=== PATIENT | male | born 1985 | race Caucasian/White ===

== ENCOUNTER 2016-05-15 09:28 | Inpatient (IN) | payer OTHER ==
[~2016-05-15] VITALS: Ht 165.1 cm; Wt 68.0 kg
[2016-05-15 09:33] VITALS: BP 133/55
--- NOTE | 2016-05-15 09:36 | NUR ---
Patient ambulated to bed 01.
--- NOTE | 2016-05-15 09:38 | NUR ---
31M BIB SELF C/O BL UPPER ABDOMINAL PAIN, SHARP, NON-RADIATING, 12/13 X 0400 TODAY; ABDOMEN FLAT, NON-TENDER, ACTIVE BOWEL SOUNDS X 4 QUADRANTS; PT DENIES N/V/D AT THIS TIME; A&OX4, BL LUNG SOUNDS CLEAR, RR EVEN/UNLABORED, SKIN IS WARM/DRY/INTACT AT THIS TIME; PT PLACED ON MONITOR, RESTING IN BED W/ HOB ELEVATED AND IN LOWEST POSITION; POSITIONED FOR COMFORT; ER MADE AWARE OF STATUS. WILL CONTINUE TO MONITOR. Addendum: 05/15/16 at 1209 by [facility] HEALED SCAR FROM SURGERY NOTED TO LEFT WRIST.
--- NOTE | 2016-05-15 09:45 | NUR ---
Dr. Sanchez evaluating patient at bedside.
[2016-05-15] MEDS ORDERED: NACL 0.9% 1,000 ML IV SCH (09:46)
[2016-05-15] MEDS ORDERED: ONDANSETRON 4 MG/2 ML VIAL IVP ONE (09:50)
[2016-05-15] MEDS ORDERED: FAMOTIDINE 20 MG/2 ML VIAL IVP ONE (09:50)
--- NOTE | 2016-05-15 09:53 | NUR ---
LAB AT BEDSIDE.
[2016-05-15] MEDS ORDERED: MORPHINE SULFATE 4 MG/ML SYR IVP ONE (10:15)
--- NOTE | 2016-05-15 10:32 | NUR ---
US at bedside.
--- NOTE | 2016-05-15 11:40 | NUR ---
Patient appears to be resting comfortably in bed. Vital Signs within normal limits. Respirations even and unlabored. WILL CONTINUE TO MONITOR.
[2016-05-15] MEDS ORDERED: HYDROmorphone 1 MG/ML AMP IVP ONE (11:45)
[2016-05-15] MEDS ORDERED: ONDANSETRON 4 MG/2 ML VIAL IVP PRN (12:00)
--- NOTE | 2016-05-15 12:26 | NUR ---
REPORT GIVEN TO ELIZABETH KHALIL.
--- NOTE | 2016-05-15 12:28 | NUR ---
Patient will be admitted to care of , CONSULT DR. MCKENZIE. Admited to [facility]. Will go to room 111B. Belongings list completed. Report to ELIZABETH KHALIL.
[2016-05-15 12:35] VITALS: BP 136/84
--- NOTE | 2016-05-15 12:35 | NUR ---
PT ADMITTED FROM ER, AWAKE ALERT AND ORIENTED X4. MAORI SPEAKING. BREATHING EVENLY AND UNLABORED. NO SIGNS OF ACUTE DISTRESS. SKIN IS WARM AND DRY. NO EPISODE OF ANY NAUSEA OR VOMITING. NO C/O BLADDER DISCOMFORT. PT VERBALIZED ABDOMINAL PAIN REDUCED TO 3/10 FROM ER. ORIENTED TO HOSPITAL ENVIRONMENT. ALL NEEDS ATTENDED, SAFETY PRECAUTIONS MAINTAINED. CALL LIGHT WITHIN REACH.
[2016-05-15] MEDS ORDERED: PNEUMOCOCCAL VACCINE 23 MCG/0.5 ML VIAL IMVAC SCH (13:45)
[2016-05-15] MEDS ORDERED: INFLUENZA VIRUS VACCINE QUAD 0.5 ML SYR IMVAC SCH (13:45)
[2016-05-15] MEDS: NACL 0.9% 1,000 ML IV SCH (14:03)
[2016-05-15 16:00] VITALS: BP 142/91
[2016-05-15] MEDS: MORPHINE SULFATE 2 MG/ML SYR IVP PRN (17:14)
--- NOTE | 2016-05-15 17:39 | NUR ---
SPOKE WITH DR. SALVADOR, MADE AWARE PT CURRENTLY HAS NO DIET ORDERS. MD VERBALIZED WILL PLACE ORDERS. CONTINUE TO MONITOR.
--- NOTE | 2016-05-15 18:15 | NUR ---
NEW ORDERS RECEIVED FROM DR. SALVADOR. NOTED AND CARRIED OUT.
[2016-05-15] MEDS: PIPER/TAZO 3.375GM/D5W PREMIX 50 ML IV SCH (18:27)
[2016-05-15] MEDS ORDERED: PIPERACILLIN/TAZOBACTAM 3.375 GM VIAL IV ONE (18:27)
--- NOTE | 2016-05-15 19:05 | NUR ---
PT ALERT AND RESPONSIVE, NO SIGNS OF ACUTE DISTRESS. ENDORSED TO ONCOMING PROJECTOR BOOTH OPERATOR NURSE FOR CONTINUITY OF CARE.
--- NOTE | 2016-05-15 19:30 | NUR ---
RECEIVED REPORT FROM DAY RN AT BEDSIDE, PATIENT IS SLEEPING, EASILY AROUSABLE, PATIENT IS ON ROOM AIR, NO SOB OR SIGN OF DISTRESS AT THIS TIME, NOTED IV TO LEFT AC PATENT AND INTACT WITH IVF INFUSING WELL, SKIN IS INTACT, PATIENT NPO AND AWARE, SAFETY MEASURES CHECKED, DISCUSSED PLAN OF CARE WITH PATIENT, PATIENT VERBALIZED UNDERSTANDING, CALL LIGHT WITHIN REACH. WILL CONTINUE TO MONITOR
[2016-05-15 20:00] VITALS: BP 141/81
--- NOTE | 2016-05-15 21:05 | NUR ---
PATIENT SLEEPING, NO SOB OR SIGN OF DISTRESS AT THIS TIME, CALL LIGHT WITHIN REACH. WILL CONTINUE TO MONITOR.
--- NOTE | 2016-05-15 23:05 | NUR ---
PATIENT SLEEPING, NO SOB OR SIGN OF DISTRESS AT THIS TIME, CALL LIGHT WITHIN REACH. WILL CONTINUE TO MONITOR.
[2016-05-16] MEDS ORDERED: PIPERACILLIN/TAZOBACTAM 3.375 GM VIAL IV ONE ×2 (00:07→05:04)
[2016-05-16] MEDS: PIPER/TAZO 3.375GM/D5W PREMIX 50 ML IV SCH ×5 (00:12→23:29)
[2016-05-16] MEDS: MORPHINE SULFATE 2 MG/ML SYR IVP PRN (00:23)
--- NOTE | 2016-05-16 00:34 | NUR ---
PATIENT C/O ABDOMINAL PAIN , ADMINISTERED MORPHINE PER MD ORDER, CALL LIGHT WITHIN REACH. WILL CONTINUE TO MONITOR.
--- NOTE | 2016-05-16 01:30 | NUR ---
PATIENT SLEEPING, NO SOB OR SIGN OF DISTRESS AT THIS TIME, CALL LIGHT WITHIN REACH. WILL CONTINUE TO MONITOR.
[2016-05-16] MEDS: NACL 0.9% 1,000 ML IV SCH ×2 (02:31→16:51)
[2016-05-16 04:00] VITALS: BP 134/83
--- NOTE | 2016-05-16 04:21 | NUR ---
PATIENT SLEEPING, NO SOB OR SIGN OF DISTRESS, CALL LIGHT WITHIN REACH. WILL CONTINUE TO MONITOR, VITAL SIGNS STABLE
--- NOTE | 2016-05-16 05:50 | NUR ---
DR MCKENZIE IN TO SEE PATIENT, PER MD, IF PATIENT'S WBC DOESNT INCREASE AND PATIENT CAN TOLERATE AND ADVANCED DIET, THE PATIENT CAN GO HOME AND FOLLOW UP AN OUTPATIENT FOR AN ELECTIVE SURGERY. WILL F/U WITH ORDERS. PER CHARGE NURSE MICHELLE MADDEN TO ORDER REGULAR DIET FOR PATIENT AND MONITOR HOW PATIENT TOLERATES.
--- NOTE | 2016-05-16 06:54 | NUR ---
PATIENT SLEEPING,NO SOB OR SIGN OF DISTRESS AT THIS TIME, CALL LIGHT WITHIN REACH. WILL CONTINUE TO MONITOR.
--- NOTE | 2016-05-16 07:15 | NUR ---
ENDORSED REPORT TO DAY SHIFT RN AT BEDSIDE, PATIENT IN STABLE CONDITION.
--- NOTE | 2016-05-16 07:17 | NUR ---
RECEIVED REPORT FROM ELIZABETH MUELLER. PT IS SLEEPING BUT EASILY AWAKEN, AAO X4, SKIN INTACT, IV ON LEFT AC PATENT AND INTACT INFUSING FLUID WELL. INITIAL ASSESSMENT DONE, NO S/S OF RESPIRATORY DISTRESS OR DISCOMFORT NOTED, DISCUSSED PLAN OF CARE, PT VERBALIZED UNDERSTANDING, SAFETY/FALL PRECAUTION ENFORCED, CALL LIGHT WITHIN REACH, WILL CONTINUE TO MONITOR.
[2016-05-16 07:55] VITALS: BP 122/73
--- NOTE | 2016-05-16 09:10 | NUR ---
NO DUE MEDS GIVEN, PT IS WATCHING TV AT THIS TIME, ALL NEEDS MET AT THIS TIME, CALL LIGHT WITHIN REACH, WILL CONTINUE TO MONITOR.
--- NOTE | 2016-05-16 09:14 | NUR ---
PATIENT HAS BEEN SCREENED AND CATEGORIZED MODERATE NUTRITION RISK. PATIENT WILL BE SEEN WITHIN 3-5 DAYS OF ADMISSION. 05/18/16-05/20/[address]
--- NOTE | 2016-05-16 10:29 | NUR ---
CALLED AND SPOKE TO DR. MCKENZIE NOTIFIED REGARDING PT'S WBC OF 10.6 AND TOLERATED REGULAR DIET, PER DR. MCKENZIE, PT IS CLEARED TO GO HOME.
--- NOTE | 2016-05-16 10:35 | NUR ---
NOTIFIED DR. BASILIO REGARDING PT IS CLEARED TO BE DISCHARGE BY DR. MCKENZIE.
--- NOTE | 2016-05-16 11:52 | NUR ---
DUE MEDS GIVEN, ALL NEEDS MET AT THIS TIME, CALL LIGHT WITHIN REACH, WILL CONTINUE TO MONITOR.
--- NOTE | 2016-05-16 13:23 | NUR ---
PT IS SLEEPING AT THIS TIME, NO S/S OF RESPIRATORY DISTRESS OR DISCOMFORT NOTED, CALL LIGHT WITHIN REACH, WILL CONTINUE TO MONITOR.
--- NOTE | 2016-05-16 15:50 | NUR ---
PT IS SLEEPING COMFORTABLY ON BED, NO S/S OF RESPIRATORY DISTRESS OR DISCOMFORT NOTED, CALL LIGHT WITHIN REACH, WILL CONTINUE TO MONITOR.
[2016-05-16 16:00] VITALS: BP 94/48
--- NOTE | 2016-05-16 17:46 | NUR ---
DINNER SERVED, PT HAS GOOD APPETITE, ALL NEEDS MET AT THIS TIME, CALL LIGHT WITHIN REACH, WILL CONTINUE TO MONITOR.
--- NOTE | 2016-05-16 19:08 | NUR ---
ENDORSED PT TO GUILLE Soria RN FOR CONTINUITY OF CARE. PT IS STABLE AT THIS TIME.
--- NOTE | 2016-05-16 19:20 | NUR ---
RECEIVED REPORT FROM DAY NURSEKRISTAL. PATIENT RESTING IN BED. NO RESPIRATORY DISTRESS, SOB, OR DISCOMFORT. INITIAL ASSESSMENT AND BODY CHECK DONE. PATIENT IS AOX4, SKIN IS INTACT, IV ACCESS TO LEFT AC 20G, PATENT. NO ABDOMINAL PAIN NOTED AT THIS TIME. DISCUSSED PLAN OF CARE, MEDICATION REGIMENT, AND PAIN MANAGEMENT WITH PATIENT. PATIENT VERBALIZED UNDERSTANDING. PLACED PATIENT ON SAFETY PRECAUTIONS. CALL LIGHT LEFT WITHIN REACH, WILL CONTINUE TO MONITOR.
--- NOTE | 2016-05-16 22:05 | NUR ---
PATIENT SITTING UP IN BED, RESTING. NO RESPIRATORY DISTRESS, SOB, OR DISCOMFORT. CALL LIGHT LEFT WITHIN REACH, WILL CONTINUE TO MONITOR.
[2016-05-17] VITALS: BP 103/61
--- NOTE | 2016-05-17 00:56 | NUR ---
PATIENT IN BED, SLEEPING. NO RESPIRATORY DISTRESS, SOB, OR DISCOMFORT. CALL LIGHT LEFT WITHIN REACH, WILL CONTINUE TO MONITOR.
--- NOTE | 2016-05-17 03:08 | NUR ---
PATIENT ASLEEP. NO RESPIRATORY DISTRESS, SOB, OR DISCOMFORT. CALL LIGHT LEFT WITHIN REACH, WILL CONTINUE TO MONITOR.
[2016-05-17] MEDS: PIPER/TAZO 3.375GM/D5W PREMIX 50 ML IV SCH ×3 (06:12→17:52)
--- NOTE | 2016-05-17 06:17 | NUR ---
PATIENT SLEEPING. NO RESPIRATORY DISTRESS, SOB, OR DISCOMFORT. CALL LIGHT LEFT WITHIN REACH, WILL CONTINUE TO MONITOR.
[2016-05-17] MEDS: NACL 0.9% 1,000 ML IV SCH (06:53)
--- NOTE | 2016-05-17 07:11 | NUR ---
REPORT GIVEN TO DAY NURSE, JOSHUA (VALERY) AND KRISTAL. PATIENT RESTING IN BED, STABLE. NO RESPIRATORY DISTRESS, SOB, OR DISCOMFORT. ALL NEEDS ATTENDED TO DURING SHIFT, CALL LIGHT LEFT WITHIN REACH.
--- NOTE | 2016-05-17 07:14 | NUR ---
RECEIVED REPORT FROM ELIZABETH HAN. PT IS AAO X4, SKIN INTACT, IV ON LEFT AC PATENT AND INTACT INFUSING FLUID WELL. INITIAL ASSESSMENT DONE, NO S/S OF RESPIRATORY DISTRESS OR DISCOMFORT NOTED, DISCUSSED PLAN OF CARE, PT VERBALIZED UNDERSTANDING, SAFETY/FALL PRECAUTIONS IN PLACE, CALL LIGHT WITHIN REACH, WILL CONTINUE TO MONITOR.
[2016-05-17 08:00] VITALS: BP 98/55
--- NOTE | 2016-05-17 08:17 | NUR ---
PT LEFT UNIT FOR SURGERY. PT STABLE UPON LEAVING.
[2016-05-17] MEDS ORDERED: ROCURONIUM 50 MG/5 ML VIAL IV ONE (08:35)
[2016-05-17] MEDS ORDERED: SUCCINYLCHOLINE CHLORIDE 200 MG/10 ML VIAL IVP ONE (08:35)
[2016-05-17] MEDS ORDERED: SEVOFLURANE 250 ML BTL INH ONE (08:35)
[2016-05-17] MEDS ORDERED: ONDANSETRON 4 MG/2 ML VIAL ONE (08:35)
[2016-05-17] MEDS ORDERED: DEXAMETHASONE 4 MG/ML VIAL ONE (08:35)
[2016-05-17] MEDS ORDERED: PROPOFOL 200 MG/20 ML VIAL IV ONE (08:35)
[2016-05-17] MEDS ORDERED: MEPERIDINE 50 MG/ML SYR ONE (08:42)
[2016-05-17] MEDS ORDERED: MIDAZOLAM 2 MG/2 ML VIAL ONE (08:42)
[2016-05-17] MEDS ORDERED: fentaNYL 0.05 MG/ML VIAL ONE (08:42)
[2016-05-17] MEDS: LACTATED RINGERS 1,000 ML IV SCH (09:18)
[2016-05-17] MEDS ORDERED: MEPERIDINE 25 MG/ML SYR IVP PRN (09:20)
[2016-05-17] MEDS ORDERED: diphenhydrAMINE 50 MG/ML VIAL IVP PRN (09:20)
[2016-05-17] MEDS ORDERED: ONDANSETRON 4 MG/2 ML VIAL IVP PRN (09:20)
[2016-05-17] MEDS ORDERED: HYDROmorphone 1 MG/ML AMP IVP PRN (09:20)
--- NOTE | 2016-05-17 10:50 | NUR ---
PT IS BACK TO UNIT, RECEIVED REPORT FROM ELIZABETH MATSON. VITALS STABLE AT THIS TIME. NO S/S OF RESPIRATORY DISTRESS OR DISCOMFORT NOTED, CALL LIGHT WITHIN REACH WILL CONTINUE TO MONITOR.
--- NOTE | 2016-05-17 12:02 | NUR ---
DUE MEDS GIVEN. PT TOLERATED WELL. NO S/S OF RESPIRATORY DISTRESS OR DISCOMFORT NOTED. CALL LIGHT WITHIN REACH. WILL CONTINUE TO MONITOR.
--- NOTE | 2016-05-17 14:16 | NUR ---
PT RESTING ON BED WATCHING TV, NO S/S OF RESPIRATORY DISTRESS OR DISCOMFORT NOTED, ALL NEEDS MET AT THIS TIME, CALL LIGHT WITHIN REACH, WILL CONTINUE TO MONITOR.
[2016-05-17 16:00] VITALS: BP 122/72
--- NOTE | 2016-05-17 16:15 | NUR ---
PT IS AMBULATING AROUND THE UNIT, PT IS TOLERATING WELL, WILL CONTINUE TO MONITOR.
[2016-05-17] MEDS: HYDROcodone/APAP 7.5/325 MG 1 TAB PO PRN (16:56)
--- NOTE | 2016-05-17 16:58 | NUR ---
PT COMPLAINED OF PAIN 08/13. PRN PAIN MED GIVEN. PT TOLERATED WELL. CALL LIGHT WITHIN REACH. WILL CONTINUE TO MONITOR.
--- NOTE | 2016-05-17 17:50 | NUR ---
DINNER SERVED, PT HAS GOOD APPETITE, ALL NEEDS MET AT THIS TIME, CALL LIGHT WITHIN REACH, WILL CONTINUE TO MONITOR.
--- NOTE | 2016-05-17 19:10 | NUR ---
ENDORSED PT TO ELIZABETH GARCIA. FOR CONTINUITY OF CARE. PT IS STABLE AT THIS TIME.
--- NOTE | 2016-05-17 19:30 | NUR ---
RECEIVED PT IN STABLE CONDITION FROM AM [id number] FOR CONTINUITY OF CARE. AWAKE.ALERT AND ORIENTED X4, [place] CITIZEN SPEAKING. MED SURG PT. NO C/O PAIN AT THIS TIME. S/P LAP REINA WITH X4 BAND AIDS ON ABDOMEN , X2 WITH SOME BLOODY DRAIN ON THE DRESSING . NO BM NOTED YET SINCE MONDAY. HAS IVF INFUSING WELL ON THE LT AC #20 . CLEAR AND PATENT. PLAN OF CARE DISCUSSED AND VERBALIZED UNDERSTANDING. CALL LIGHT AND URINAL PLACED WITHIN EASY REACH. WILL CONTINUE TO MONITOR.
[2016-05-17 20:00] VITALS: BP 103/55
--- NOTE | 2016-05-17 22:00 | NUR ---
SLEEPING WELL AT THIS TIME. NO S/S O ANT DISCOMFORT NOR PAIN NOTED
--- NOTE | 2016-05-17 23:50 | NUR ---
INSTRUCTED PT TO USE INCENTIVE SPIROMETER WHILE AWAKE. AND TO PUT SUPPORT ON THE POST OP SITE /ABDOMEN WHEN DOING COUGHING EXERCISES. DEMONSTRATED WELL.
[2016-05-18 00:03] VITALS: BP 101/55
[2016-05-18] MEDS: PIPER/TAZO 3.375GM/D5W PREMIX 50 ML IV SCH ×3 (00:05→11:19)
[2016-05-18] MEDS: HYDROcodone/APAP 7.5/325 MG 1 TAB PO PRN ×2 (00:08→08:10)
--- NOTE | 2016-05-18 01:55 | NUR ---
ASLEEP. NO S/S OF ANY DISCOMFORT NOR PAIN NOTED.
[2016-05-18 04:30] VITALS: BP 102/59
--- NOTE | 2016-05-18 05:30 | NUR ---
AWAKE, BLOOD WAS DRAWN THIS AM. WILL FOLLOW UP RESULTS.
--- NOTE | 2016-05-18 07:15 | NUR ---
ENDORSED PT IN STABLE CONDITION TO AM NURSE.
--- NOTE | 2016-05-18 07:15 | NUR ---
RECEIVED REPORT FROM NIGHT NURSE. PT IS AAOX4 SERBI[place] SPEAKING. ON ROOM AIR. IV TO LEFT AC INFUSING WELL. 4 ABDOMINAL BANDS AIDS, SCD'S IN PLACE. INITIAL ASSESSMENT COMPLETED. REVIEWED PLAN OF CARE WITH PT, PT VERBALIZED UNDERSTANDING. ALL SAFETY PRECAUTIONS MET. ALL NEEDS MET. CALL LIGHT WITHIN REACH. WILL CONTINUE TO MONITOR.
[2016-05-18 08:00] VITALS: BP 105/63
[2016-05-18] MEDS ORDERED: COLACE100 M1 PO (08:39)
[2016-05-18] MEDS ORDERED: APAP/HYDROCODON1 T30 PO (08:39)
[2016-05-18] MEDS ORDERED: MOTRIN400 MG PO (08:40)
[2016-05-18] MEDS ORDERED: NORCO 5/325 MG1 TAB PO (08:55)
[2016-05-18] MEDS: LACTATED RINGERS 1,000 ML IV SCH (09:13)
--- NOTE | 2016-05-18 10:50 | NUR ---
DISCUSSED DISCHARGE PLAN WITH PT, PT VERBALIZED UNDERSTANDING. ALL NEEDS MET. CALL LIGHT WITHIN REACH
--- NOTE | 2016-05-18 11:32 | NUR ---
DUE MEDICATIONS GIVEN, FLU VACCINE AND PNEUMONIA VACCINE GIVEN AT THIS. PT TOLERATED WELL. CALL LIGHT WITHIN REACH
--- NOTE | 2016-05-18 12:15 | NUR ---
PT SIGNED ALL DISCHARGE PAPERWORK, PRESCRIPTION AND EDUCATION GIVEN, PT VERBALIZED UNDERSTANDING. IV REMOVED TIP INTACT. ALL BELONGINGS WITH PT. FOLLOW UP APPOINTMENTS INFORMATION GIVEN. PT CURRENTLY EATING LUNCH WAITING FOR FRIEND TO PICK HIM UP.
--- NOTE | 2016-05-18 12:45 | NUR ---
PT WAS WHEELED OUT TO FRONT LOBBY IN STABLE CONDITION.
== END 2016-05-18 12:45 | disposition home or self-care (01) | DRG 263 ==
LOC: MED 09:28 → MTU 12:04
PROVIDERS: ADMIT Family Medicine; ATTEND Family Medicine
PROC: 0FT44ZZ Resection of Gallbladder, Percutaneous Endoscopic Approach (ICD-10-PCS; principal; 2016-05-17 07:30)
DX: K80.12 Calculus of gallbladder with acute and chronic cholecystitis without obstruction (principal); N17.0 Acute kidney failure with tubular necrosis; E83.51 Hypocalcemia; E78.5 Hyperlipidemia, unspecified; F17.210 Nicotine dependence, cigarettes, uncomplicated; F12.90 Cannabis use, unspecified, uncomplicated; F19.10 Other psychoactive substance abuse, uncomplicated; Z72.89 Other problems related to lifestyle; Z53.29 Procedure and treatment not carried out because of patient's decision for other reasons

== ENCOUNTER 2018-05-06 13:12 | Emergency (ER) | payer SELFPAY ==
[~2018-05-06] VITALS: Ht 167.6 cm; Wt 62.1 kg
[~2018-05-06 13:12] MED LIST: ACET-8386 PO; DOCU-299 PO; IBUP-1842 PO
[2018-05-06 13:32] VITALS: BP 115/71
--- NOTE | 2018-05-06 13:35 | NUR ---
PATIENT AMBULATED TO BED #7
--- NOTE | 2018-05-06 13:40 | NUR ---
PATIENT PRESENTS TO THE ED WITH C/O GENERALIZED 10/10 PAIN AND PRODUCTIVE COUGH. PATIENT REPORTS HAVING COUGH X5DAYS. PATIENT DENIES MEDICAL HX. NO SOB, NO S/S OF DISTRESS NOTED AT THIS TIME. BED LOWERED WITH SIDE RAILS UP
[2018-05-06] MEDS ORDERED: KETOROLAC 60 MG/2 ML VIAL IM ONE (14:10)
[2018-05-06] MEDS ORDERED: diphenhydrAMINE 50 MG/ML VIAL IM ONE (14:10)
--- NOTE | 2018-05-06 14:13 | NUR ---
INFLUENZA SWAB TAKEN AND SENT TO THE LAB
[2018-05-06 15:57] VITALS: BP 100/64
--- NOTE | 2018-05-06 15:58 | NUR ---
Patient discharged with v/s stable. Written and verbal after care instructions given and explained. Patient alert, oriented and verbalized understanding of instructions. Ambulatory with steady gait. All questions addressed prior to discharge. ID band removed. Patient advised to follow up with PMD. Rx of TAMIFLU, MOTRIN, PROMETHAZINE given. Patient educated on indication of medication including possible reaction and side effects. Opportunity to ask questions provided and answered.
== END 2018-05-06 15:58 | disposition home or self-care (01) ==
LOC: MED 13:12
DX: J10.1 Influenza due to other identified influenza virus with other respiratory manifestations (principal); Z79.1 Long term (current) use of non-steroidal anti-inflammatories (NSAID)
CPT/HCPCS: 87804; 96372; 99283; J1200; J1885; 36415

== ENCOUNTER 2019-05-04 15:08 | Emergency (ER) | payer SELFPAY ==
[~2019-05-04] VITALS: Ht 165.1 cm; Wt 66.3 kg
[2019-05-04 15:13] VITALS: BP 134/85
--- NOTE | 2019-05-04 15:23 | NUR ---
Patient ambulated to bed 6. RN evaluating patient at bedside.
--- NOTE | 2019-05-04 15:35 | NUR ---
[place] JC AT BEDSIDE EVALUATING PT
--- NOTE | 2019-05-04 15:35 | NUR ---
C/O UPPER LIP SWELLING X1 DAY. PT DENIES INJURY OR EXPOSURE TO POTENTIAL ALLERGEN. PT REPORTS PAIN 10/13. DENIES SOB, CP, ITCHING. BED IN LOW POSITION, SIDE RAIL UP X1
[2019-05-04] MEDS ORDERED: DEXAMETHASONE 10 MG/ML VIAL IM ONE (15:40)
[2019-05-04] MEDS ORDERED: diphenhydrAMINE 50 MG/ML VIAL IM ONE (15:40)
[2019-05-04 17:11] VITALS: BP 131/80
--- NOTE | 2019-05-04 17:11 | NUR ---
Patient discharged with v/s stable. Written and verbal after care instructions given and explained. Patient alert, oriented and verbalized understanding of instructions. Ambulatory with steady gait. All questions addressed prior to discharge. ID band removed. Patient advised to follow up with PMD. Rx of KEFLEX, BENADRYL, AND PREDNISONE given. Patient educated on indication of medication including possible reaction and side effects. Opportunity to ask questions provided and answered.
== END 2019-05-04 17:11 | disposition home or self-care (01) ==
LOC: MED 15:08
DX: T78.3XXA Angioneurotic edema, initial encounter (principal); L01.00 Impetigo, unspecified; Z79.899 Other long term (current) drug therapy
CPT/HCPCS: 96372; 99284; J1100; J1200

== ENCOUNTER 2019-05-07 10:07 | Emergency (ER) | payer SELFPAY ==
[~2019-05-07] VITALS: Ht 154.9 cm; Wt 63.5 kg
[2019-05-07 10:19] VITALS: BP 126/88
--- NOTE | 2019-05-07 11:53 | NUR ---
CALL FROM LOBBY NO ANSWER.
--- NOTE | 2019-05-07 12:50 | NUR ---
PT AMBULATED TO ER BED 8
[2019-05-07 13:19] VITALS: BP 132/69
--- NOTE | 2019-05-07 13:19 | NUR ---
Patient discharged with v/s stable. Written and verbal after care instructions given and explained. Patient alert, oriented and verbalized understanding of instructions. Ambulatory with to car. All questions addressed prior to discharge. ID band removed. Patient advised to follow up with PMD. Opportunity to ask questions provided and answered.
== END 2019-05-07 13:19 | disposition home or self-care (01) ==
LOC: MED 10:07
DX: K13.0 Diseases of lips (principal); Z79.899 Other long term (current) drug therapy
CPT/HCPCS: 99281

== ENCOUNTER 2019-10-30 00:12 | Emergency (ER) | payer SELFPAY ==
[~2019-10-30] VITALS: Ht 165.1 cm; Wt 67.6 kg
[2019-10-30 00:33] VITALS: BP 117/59
[2019-10-30 01:11] VITALS: BP 117/59
[2019-10-30] MEDS: SULFAMETH/TRIMETH DS 800/160MG 1 TAB PO ONE (01:11)
[2019-10-30] MEDS: cephALEXin 500 MG CAP PO ONE (01:11)
== END 2019-10-30 01:11 | disposition home or self-care (01) ==
LOC: MED 00:12
DX: L03.116 Cellulitis of left lower limb (principal); K21.9 Gastro-esophageal reflux disease without esophagitis; Z79.899 Other long term (current) drug therapy; W57.XXXA Bitten or stung by nonvenomous insect and other nonvenomous arthropods, initial encounter; Y93.89 Activity, other specified; Y92.89 Other specified places as the place of occurrence of the external cause; Y99.8 Other external cause status
CPT/HCPCS: 99283

== ENCOUNTER 2019-12-31 18:53 | Emergency (ER) | payer MEDICAID ==
[~2019-12-31] VITALS: Ht 165.1 cm; Wt 68.0 kg
[2019-12-31 19:01] VITALS: BP 132/75
[2019-12-31] MEDS ORDERED: BACITRACIN OINT 500 UNITS/GM PKT TP ONE (19:45)
[2019-12-31 20:07] VITALS: BP 132/75
== END 2019-12-31 20:07 | disposition home or self-care (01) ==
LOC: MED 18:53
DX: L03.116 Cellulitis of left lower limb (principal); R03.0 Elevated blood-pressure reading, without diagnosis of hypertension; K21.9 Gastro-esophageal reflux disease without esophagitis; F17.200 Nicotine dependence, unspecified, uncomplicated; F12.90 Cannabis use, unspecified, uncomplicated; Z90.49 Acquired absence of other specified parts of digestive tract; Z79.899 Other long term (current) drug therapy
CPT/HCPCS: 73630; 99283; Q0092

== ENCOUNTER 2023-05-22 00:05 | Emergency (ER) | payer SELFPAY ==
[~2023-05-22] VITALS: Ht 162.6 cm; Wt 71.8 kg
[~2023-05-22 00:05] MED LIST changes: -ACET-8386 PO; +ACET-8905 PO
[2023-05-22 00:20] VITALS: BP 130/74; PULSE 78; RESP 16; TEMP 97.4; O2SAT 99
[2023-05-22] MEDS: NACL 0.9% 1,000 ML IV ONE (01:12)
[2023-05-22 01:21] LABS: BASOPHILS % (AUTO) 0.7 % (0.0-2.0); EOSINOPHILS # (AUTO) 0.2 K/uL (0-0.4); EOSINOPHILS % (AUTO) 3.3 % (0.0-4.0); HEMATOCRIT 42.8 % (36-52); HEMOGLOBIN 14.6 g/dL (12.0-18.0); LYMPHOCYTES # (AUTO) 3.1 K/uL (2.0-11.5); LYMPHOCYTES % (AUTO) 42.1 % (20.5-51.1); MEAN CORPUSCULAR HEMOGLOBIN 30 pg (27-31); MEAN CORPUSCULAR HGB CONC 34 g/dL (33-37); MONOCYTES # (AUTO) 0.5 K/uL (0.8-1.0); MONOCYTES % (AUTO) 6.8 % (1.7-9.3); NEUTROPHILS # (AUTO) 3.5 K/uL (1.8-7.7); NEUTROPHILS % (AUTO) 47.1 % (42.2-75.2); PLATELET COUNT (AUTO) 251 K/uL (140-450); RED BLOOD CELL COUNT(AUTO) 4.86 MIL/uL (4.20-6.10); WHITE BLOOD COUNT (AUTO) 7.3 K/uL (4.8-10.8)
[2023-05-22] MEDS: KETOROLAC 30 MG/ML VIAL IVP ONE (01:21)
[2023-05-22 01:41] LABS: ANION GAP 8.9 (8-16); CALCIUM 8.7 mg/dL (8.5-10.1); CARBON DIOXIDE 29.9 mmol/L (21-32); POTASSIUM 3.8 mmol/L (3.5-5.1)
[2023-05-22] MEDS ORDERED: NAPR-54 PO (03:54)
[2023-05-22 04:07] VITALS: BP 130/74; PULSE 78; RESP 16; TEMP 97.4; O2SAT 99
== END 2023-05-22 04:08 | disposition home or self-care (01) ==
LOC: MED 00:05
DX: S33.9XXA Sprain of unspecified parts of lumbar spine and pelvis, initial encounter (principal); V03.99XA Pedestrian with other conveyance injured in collision with car, pick-up truck or van, unspecified whether traffic or nontraffic accident, initial encounter; Z79.899 Other long term (current) drug therapy; Y93.89 Activity, other specified; Y92.89 Other specified places as the place of occurrence of the external cause; Y99.8 Other external cause status
CPT/HCPCS: 36415; 72131; 74177; 80048; 85025; 96361; 96374; 99285; J1885; J7030; Q9967